=== PATIENT | male | born 1975 | race Caucasian/White ===

== ENCOUNTER 2024-05-29 13:45 | Outpatient (CLI) | payer BC ==
[2024-05-29 14:18] LABS: #Basophils 0.05 10x3/uL (0.0-0.2); #Monocytes 0.78 10x3/uL (0.0-1.1); #Neutrophils 2.71 10x3/uL (1.5-8.4); %Basophils 0.8 % (0.0-2.0); %Eosinophils 1.7 % (0.0-6.0); %Lymphocytes 38.4 % (18.0-47.0); %Monocytes 13.2 % (0.0-10.0); %Neutrophils 45.7 % (40.0-75.0); Hematocrit 43.3 % (38.8-50.0); Hemoglobin 14.6 g/dL (13.5-17.5); Mean Corpuscular HGB CONC 33.7 g/dL (32.0-36.0); Mean Corpuscular Hemoglobin 31.9 pg (27.0-33.0); Mean Corpuscular Volume 94.5 fL (81.2-95.1); Mean Platelet Volume 10.2 fL (7.4-10.4); Platelet Count 222 10x3/uL (150-450); RBC Distribution Width 12.1 % (11.5-14.5); Red Blood Cell (RBC) Count 4.58 10x6/uL (4.32-5.72); White Blood Cell (WBC) Count 5.9 10x3/uL (3.5-10.5)
[2024-05-29 14:37] LABS: ALT (SGPT) 24 U/L (8-55); AST (SGOT) 23 U/L (5-34); Albumin 4.1 g/dL (3.5-5.0); Alkaline Phosphatase 64 U/L (40-110); Anion Gap 13 mmol/L (10-20); BUN (Urea Nitrogen) 13 mg/dL (8.9-20.6); Bilirubin, Total 0.3 mg/dL (0.2-1.2); Calc. Creatinine Clearance 0 mL/min (70-130); Calcium 9.8 mg/dL (7.8-10.44); Carbon Dioxide 27 mmol/L (22-29); Chloride 103 mmol/L (98-107); Estimated GFR 107; Globulin 3.1 g/dL (2.4-3.5); Glucose 130 mg/dL (70-105); Potassium 4.2 mmol/L (3.5-5.1); Protein, Total 7.2 g/dL (6.0-8.3); Sodium 139 mmol/L (136-145)
== END 2024-05-29 13:46 | disposition home or self-care (01) ==
LOC: CSHLAB 13:45
PROVIDERS: ATTEND Surgery
DX: Z01.812 Encounter for preprocedural laboratory examination (principal); K43.9 Ventral hernia without obstruction or gangrene
CPT/HCPCS: 80053; 85025

== ENCOUNTER 2024-06-04 05:50 | Day surgery (SDC) | payer BC ==
[2024-05-29 14:05] VITALS: BMI 34.9
[2024-06-04] MEDS ORDERED: Bupivacaine/Epinephrine 0.25% 30 ML VIAL ONE (06:55)
[2024-06-04] MEDS ORDERED: PROPOFOL 20 ML ONE ×2 (07:02→08:23)
[2024-06-04] MEDS ORDERED: Fentanyl 250 MCG/5 ML VIAL ONE (07:02)
[2024-06-04] MEDS ORDERED: Dexamethasone 4 mg/ml Vial ONE (07:03)
[2024-06-04] MEDS ORDERED: Rocuronium Bromide 10 MG/ML (10ML VIAL) ONE (07:03)
[2024-06-04] MEDS ORDERED: Lidocaine 1% PF 5 ML VIAL ONE (07:03)
[2024-06-04] MEDS ORDERED: Ondansetron PF 4 MG/2 ML Vial ONE (07:03)
[2024-06-04] MEDS ORDERED: CEFAZOLIN 2 GM VIAL ONE (07:21)
[2024-06-04] MEDS ORDERED: Ketorolac Tromethamine 30 MG (1 mL) VIAL ONE (08:44)
[2024-06-04] MEDS ORDERED: SUGAMMADEX SODIUM 200 MG/2 ML VIAL ONE (08:44)
[2024-06-04] MEDS ORDERED: fentaNYL 50 mcg/mL 1 mL Vial ONE (09:30)
[2024-06-04] MEDS ORDERED: HYDROcodone/Acetaminophen 5/325 mg Tablet ONE (09:58)
[2024-06-04] MEDS ORDERED: Ondansetron ODT 4 MG TAB ONE (10:36)
== END 2024-06-04 10:50 | disposition home or self-care (01) ==
LOC: CSHSDC 05:50
PROVIDERS: ATTEND Surgery
PROC: 0WUF4JZ Supplement Abdominal Wall with Synthetic Substitute, Percutaneous Endoscopic Approach (ICD-10-PCS; principal; 2024-06-04)
DX: K43.9 Ventral hernia without obstruction or gangrene (principal); Z98.52 Vasectomy status
CPT/HCPCS: A4314; C1781; J1100; J1885; J2405; J2704; J3010; Q0162; S2900